=== PATIENT | female | born 1990 | race Caucasian/White ===

== ENCOUNTER 2017-03-20 05:59 | Inpatient (IN) ==
[2017-03-20] MEDS ORDERED: Famotidine 20 MG/2 ML VIAL IVP PRN (06:32)
[2017-03-20] MEDS ORDERED: Metoclopramide 10 MG/2 ML VIAL IVP PRN (06:32)
[2017-03-20] MEDS ORDERED: Ondansetron 4 MG/2 ML VIAL IVP PRN (06:32)
[2017-03-20] MEDS ORDERED: Naloxone 0.4 MG/ML INJ IVP PRN (06:32)
[2017-03-20] MEDS ORDERED: *HR* Nalbuphine 20 MG/ML AMPUL IVP PRN (06:35)
[2017-03-20] MEDS ORDERED: Ringers Solution, Lactated 1,000 ML IVC SCH (06:45)
[2017-03-20 06:56] LABS: Basophils % 0.3 %; Eosinophils # 0.2 K/mcL (0.0-0.6); Eosinophils % 1.4 %; Hematocrit 33.1 % (35.3-44.9); Hemoglobin 11.2 g/dL (11.5-15.4); Immature Granulocytes % 1.5 % (0-4); Lymphocytes # 2.3 K/mcL (0.6-4.6); Lymphocytes % 15.4 %; Mean Corpuscular HGB Conc 33.8 g/dL (31.6-35.5); Mean Corpuscular Hemoglobin 31.2 pg (28.0-33.3); Mean Corpuscular Volume 92.2 fL (83.0-100.0); Mean Platelet Volume 9.7 fL (9.4-12.4); Monocytes # 0.9 K/mcL (0.0-1.3); Monocytes % 5.8 %; Neutrophils # 11.4 K/mcL (1.6-8.9); Platelet Count 261 K/mcL (140-400); Red Blood Count 3.59 M/mcL (3.82-4.97); Red Cell Distribution Width 12.6 % (11.5-14.5); Segmented Neutrophils % 75.6 %
[2017-03-20 07:52] LABS: Amphetamine Screen,Urine Negative ng/mL (Cutoff=1000); Barbiturate Screen,Urine Negative ng/mL (Cutoff=200); Benzodiazepines Screen,Urine Negative ng/mL (Cutoff=200); Cannabinoid Screen,Urine Negative ng/mL (Cutoff = 50); Cocaine Screen,Urine Negative ng/mL (Cutoff= 300); Opiate Screen,Urine Negative ng/mL (Cutoff=300); Phencyclidine Screen,Urine Negative ng/mL (Cutoff=25)
[2017-03-20] MEDS: Oxytocin 20 units/ LR 1000 mL 20 UNIT/1,000 ML BAG IVC SCH (07:59)
[2017-03-20] MEDS: Nicotine 14 MG PATCH.TD24 TD SCH (09:09)
--- NOTE | 2017-03-20 10:18 | OB/GYN History & Physical ---
Date of Encounter: 03/20/17 Time of Encounter: 10:17 History of Present Illness HPI: Ms. Hamilton is a 26 year old female Past Med Surg Social Fam HX - Past Medical History Medical history: no medical history Psychiatric history: ADHD - Social History Smoking Status: Current every day smoker Packs per day: 10 Smokeless Tobacco Status: No Alcohol use: none Drug use: none - Family History Mother Adopted: No Family Member Ethnicity: Non- Living Status: Still Living Hx Family Cardiac Disorders: No Hx Family Respiratory Disorders: No Hx Family Cancer: No Hx Family GI Disorders: No Hx Family Genitourinary Disorders: No Hx Family Endocrine Disorder: No Hx Family Musculoskeletal Disorders: No Hx Family Neuromuscular Disorders: No Hx Family Neurologic Disorders: No Hx Family HEENT Disorders: No Hx Family Autoimmune Disorders: No Hx Family Reproductive Disorders: No Hx Family Psychosocial Disorders: No Hx Family Medical Disorders: Yes (fibromyalgia) Obstetrical History - Pregnancies : 2 Medications and Allergies Vit No.124/Iron/FA [ Vitamin Tablet] 1 each PO DAILY 30 Days tablet 08/26/16 [Rx] 3 Allergy/AdvReac Type Severity Reaction Status Date / Time No Known Allergies Allergy Verified 08/26/16 15:48 Results Result Diagrams: 03/20/17 06:45 Abnormal lab results WBC 15.1 K/mcL (4.3-11.1) H 03/20/17 06:45 RBC 3.59 M/mcL (3.82-4.97) L 03/20/17 06:45 Hgb 11.2 g/dL (11.5-15.4) L 03/20/17 06:45 Hct 33.1 % (35.3-44.9) L 03/20/17 06:45 Neutrophils # 11.4 K/mcL (1.6-8.9) H 03/20/17 06:45 All other labs normal.
--- NOTE | 2017-03-20 10:31 | OB/GYN History & Physical ---
Date of Encounter: 03/20/17 Time of Encounter: 10:29 Assessment and Plan (1) IUGR (intrauterine growth restriction) Current visit: Yes Status: Acute pitocin started, ok for epidural if she desires, anticipate FHT CAT 1 History of Present Illness HPI: Ms. Hamilton is a 26 year old female @ 38+0 weeks with IUGR who presents for IOL, she does not report LOF, VB or ctxs, feels good FM, she is GBS neg Past Med Surg Social Fam HX - Past Medical History Medical history: no medical history Psychiatric history: ADHD - Social History Smoking Status: Current every day smoker Packs per day: 10 Smokeless Tobacco Status: No Alcohol use: none Drug use: none - Family History Mother Adopted: No Family Member Ethnicity: Non- Living Status: Still Living Hx Family Cardiac Disorders: No Hx Family Respiratory Disorders: No Hx Family Cancer: No Hx Family GI Disorders: No Hx Family Genitourinary Disorders: No Hx Family Endocrine Disorder: No Hx Family Musculoskeletal Disorders: No Hx Family Neuromuscular Disorders: No Hx Family Neurologic Disorders: No Hx Family HEENT Disorders: No Hx Family Autoimmune Disorders: No Hx Family Reproductive Disorders: No Hx Family Psychosocial Disorders: No Hx Family Medical Disorders: Yes (fibromyalgia) Obstetrical History - Pregnancies : 2 Para: 1 Livin Medications and Allergies Vit No.124/Iron/FA [ Vitamin Tablet] 1 each PO DAILY 30 Days tablet 08/26/16 [Rx] 3 Allergy/AdvReac Type Severity Reaction Status Date / Time No Known Allergies Allergy Verified 08/26/16 15:48 Exam - Constitutional Constitutional: well developed - HEENT HEENT: PERRL - Neck Neck exam: full ROM - Lungs Respiratory exam: CTAB - Cardiovascular Cardiovascular exam: RRR - Abdomen Abdomen: Present: gravid - Cervix Dilation: 2 Effacement: 80 Results Result Diagrams: 03/20/17 06:45 Abnormal lab results WBC 15.1 K/mcL (4.3-11.1) H 03/20/17 06:45 RBC 3.59 M/mcL (3.82-4.97) L 03/20/17 06:45 Hgb 11.2 g/dL (11.5-15.4) L 03/20/17 06:45 Hct 33.1 % (35.3-44.9) L 03/20/17 06:45 Neutrophils # 11.4 K/mcL (1.6-8.9) H 03/20/17 06:45 All other labs normal.
[2017-03-20] MEDS ORDERED: *HR* FentaNYL (PF) 100 MCG/2 ML VIAL EP ONE (10:58)
[2017-03-20] MEDS ORDERED: Bupivacaine-MPF 0.25% 10 ML VIAL EP ONE (10:58)
--- NOTE | 2017-03-20 10:58 | Anesthesia Evaluation PreOp ---
Date of Encounter: 03/20/17 Time of Encounter: 10:56 - Past History Planned Operation: PASCUAL Cardiac History: Denies any Significant Hx Pulmonary History: Smoker, Pack/yr (15) HEALTH CARE MANAGER History: Denies Any Significant HX Other Medical History: Denies Any Significant HX Anesthesia History: No Prior Anesthetic Complications (denies personal h/o GA or NA complications; denies family h/o GA complications), Past Anesthesia (PASCUAL x 1; GA x 1) : Yes Test: Positive Alcohol Use: none Drug use: none Medications and Allergies Vit No.124/Iron/FA [ Vitamin Tablet] 1 each PO DAILY 30 Days tablet 08/26/16 [Rx] 3 Allergy/AdvReac Type Severity Reaction Status Date / Time No Known Allergies Allergy Verified 08/26/16 15:48 - Meds/Allergy Pre-op Review Medications Reviewed: Yes Allergies Reviewed: Yes Beta Blockers on Current Med List: No Anesthesia Results - Labs 03/20/17 06:45 Anesthesia Exam 125/68, HR 89, RR 16 O2 Sat Height 1.55 m Weight 66.9 kg NPO (# of Hours): solids >5 hours Pain Scale: 4 Pain Scale Used: Numeric (1 - 10) - HEENT Pupil (Motor): Pupils equal Mallampati: I Teeth: Normal Oral Opening: Greater than 3 - HEALTH CARE MANAGER LOC: Oriented HEALTH CARE MANAGER Motor: Normal RUE, Normal LUE, Normal RLE, Normal LLE, Normal Face HEALTH CARE MANAGER Sensory: Normal: RUE, LUE, RLE, LLE, Face - Cardiac Rhythm: Regular Murmur: None - Pulmonary Breath Sounds: bilateral Clear Respiratory Effort: Symmetrical Anesthesia Assess/Plan ASA Score: 2 Modified [place] Scale for Level of Consciousness: Cooperative, oriented, and tranquil Anesthetic Plan: Regional Autologous Blood: No Monitoring Plan: Standard Monitors Recovery Plan: Other
[2017-03-20] MEDS ORDERED: Epidural Premix (fent/bupiv) 110 ML EP SCH (11:00)
[2017-03-20] MEDS ORDERED: *HR* FentaNYL (PF) 100 MCG/2 ML VIAL ONE (11:04)
[2017-03-20] MEDS ORDERED: Bupivacaine-MPF 0.25% 10 ML VIAL ONE (11:05)
[2017-03-20] MEDS ORDERED: Epidural Premix (fent/bupiv) 110 ML EP ONE (11:05)
--- NOTE | 2017-03-20 13:47 | OB Labor Progress Note ---
Date of Encounter: 03/20/17 Time of Encounter: 13:45 Labor Progress Note - Subjective Subjective: patient doing well - Vital Signs Vital Signs: VSS - Cervix Cervix: 3/80 - Heart Tones Heart Tones: FHT CAT 1 - Plan Plan: ok for epidural if she desires, pitocin @ 14, keep increasing, anticipate
--- NOTE | 2017-03-20 17:35 | Anesthesia Procedures ---
Date of Encounter: 03/20/17 Time of Encounter: 17:33 Procedures: Anesthesia - Epidural/Spinal Patient ID/Chart reviewed: Yes Patient examined: Yes OB Eval: Gestational age: 38 weeks OB Eval: : 2 OB Eval: Hx Para: 1 OB Eval: Dilated at (cm): 4 OB Eval: Contractions: Non-stressed pattern Consent Obtained: Yes Supplemental Oxygen: None/Room Air Site Prep: Aseptic Technique, Sterile prep and drape, Povidone-Iodine 1% Local Anesthetic: Lidocaine 1% Amount of Local Anesthetic used: 3 Touhy Needle Gauge: 18 Touhy Needle Depth (cm): 4 Catheter Depth at Skin (cm): 10 Test Dose (1.5% Lido + Epi): Volume given (mls): 5 Test Dose Result: Negative Loading Dose: 0.25% Marcaine (mls): 5 Loading Dose: Fentanyl (mcg): 100 Loading Dose Administered: Thru Catheter Infusion Med: 0.125% Bupivacaine w/ 2 mcg/ml Fentanyl Infusion Rate (mls/hr): 14 (demand bolus of 5mL q30min PRN) Catheter Secured in Place: Tegaderm, Tape Interspace Used: L3-L4 Loss of Resistance (CALVIN): Yes Blood: No CSF: No Paresthesia: No Procedure: successful x 1 attempt Vitals + FHT's: please see Andrew CURTIS's electronic documentation for VS.
--- NOTE | 2017-03-20 18:37 | OB Labor Progress Note ---
Date of Encounter: 03/20/17 Time of Encounter: 18:35 Labor Progress Note - Subjective Subjective: patient comfortable s/p epidural - Vital Signs Vital Signs: VSS - Cervix Cervix: 4cm - Heart Tones Heart Tones: 150/mod wanda/+accels, non rec wanda decels - Plan Plan: patient AROM'ed, clear fluid anticipate
--- NOTE | 2017-03-20 22:43 | OB Labor Progress Note ---
Date of Encounter: 03/21/17 Time of Encounter: 22:04 Labor Progress Note - Subjective Subjective: patient comfortable - Vital Signs Vital Signs: VSS - Cervix Cervix: 5cm - Heart Tones Heart Tones: 145/mod wanda/+accels, non rec wanda decels - Plan Plan: IUPC placed, anticipate
[2017-03-21] MEDS ORDERED: Epidural Premix (fent/bupiv) 110 ML EP ONE (00:29)
--- NOTE | 2017-03-21 03:09 | OB Labor Progress Note ---
Date of Encounter: 03/21/17 Time of Encounter: 03:07 Labor Progress Note - Subjective Subjective: patient comfortable - Vital Signs Vital Signs: VSS - Cervix Cervix: 6cm - Heart Tones Heart Tones: 145/mod wanda/+accels, non rec wanda decels - Plan Plan: pit @ 6 cont to monitor strip, anticipate ,
--- NOTE | 2017-03-21 03:46 | OB/GYN Procedure Note ---
Delivery - Delivery Date: 03/21/17 Provider: Alysa Swift Intrapartum events: none Delivery induction: AROM, oxytocin Delivery monitor: external FHT, internal uterine Anesthesia: epidural Estimated Blood Loss: 100 - Infant (s) Infant A Presentation: vertex Position: TRACY Route of delivery: vacuum extraction Gender: Female Viability: Viable - Repair Episiotomy: none Laceration Description: None - Complications Delivery complications: none - Disposition Mom disposition: stable in LDR disposition: stable in LDR - Comments Comments: 26 y/o now delivered a viable female infant @0332 hrs via VAVD for HR decels, weight 2490g (5lbs 8 oz), delivered TRACY, no nuchal cord , APGARs 8/9, placenta delivered intact @ 0336hrs, no lacerations, EBL 100cc, mother and stable.
[2017-03-21] MEDS ORDERED: Measles/Mumps/Rubella Vacc 0.5 ML VIAL SQ PRN (03:47)
[2017-03-21] MEDS ORDERED: Oxytocin 20 units/ LR 1000 mL 20 UNIT/1,000 ML BAG IVC SCH (04:00)
[2017-03-21] MEDS: Oxytocin 20 units/ LR 1000 mL 20 UNIT/1,000 ML BAG IVC SCH (04:19)
[2017-03-21] MEDS: Ibuprofen 600 MG TABLET PO PRN ×2 (08:41→17:29)
[2017-03-21] MEDS: Prenatal Vit/FA 1 EACH TABLET PO SCH (08:41)
[2017-03-21] MEDS: Nicotine 14 MG PATCH.TD24 TD SCH (08:42)
[2017-03-22] MEDS: Ibuprofen 600 MG TABLET PO PRN (01:13)
[2017-03-22 07:49] VITALS: BP 99/62
--- NOTE | 2017-03-22 08:59 | Discharge Summary ---
Date of Encounter: 03/22/17 Time of Encounter: 09:00 - Discharge Diagnosis (1) Vaginal delivery Priority: Primary Status: Acute Comments: continue routine care discharge home today (2) Breast feeding status of mother Priority: Secondary Status: Acute Comments: support prn - Discharge Medications Prescriptions: Ibuprofen [Motrin] 600 mg PO Q6HR PRN #60 tablet PRN Reason: Cramping Home Medications: Vit No.124/Iron/FA [ Vitamin Tablet] 1 each PO DAILY 30 Days tablet 08/26/16 [Rx] Ibuprofen [Motrin] 600 mg PO Q6HR PRN #60 tablet 03/22/17 [Rx] Vit/FA 1 each PO DAILY tablet 03/22/17 [Rx] Allergies/Adverse Reactions: 3 Allergy/AdvReac Type Severity Reaction Status Date / Time No Known Allergies Allergy Verified 08/26/16 15:48 Data Procedures and tests throughout hospitalization: Laboratory Tests 03/20/17 03/20/17 06:45 06:45 WBC 15.1 H RBC 3.59 L Hgb 11.2 L Hct 33.1 L MCV 92.2 MCH 31.2 MCHC 33.8 RDW 12.6 Plt Count 261 MPV 9.7 Immature Gran % 1.5 Seg Neutrophils % 75.6 Lymphocytes % 15.4 Monocytes % 5.8 Eosinophils % 1.4 Basophils % 0.3 Neutrophils # 11.4 H Lymphocytes # 2.3 Monocytes # 0.9 Eosinophils # 0.2 Basophils # 0.0 Urine Opiates Screen Negative Ur Barbiturates Screen Negative Ur Phencyclidine Scrn Negative Ur Amphetamines Screen Negative U Benzodiazepines Scrn Negative Urine Cocaine Screen Negative U Marijuana (THC) Screen Negative Date of admission: 03/20/17 05:59 Primary care physician: PCP NONE Consults: 03/20/17 06:32 Consult to Production Utility Worker (W&C) [CONS] Stat Reason For Exam: Reason for SW Consult: history of drug use, transportation issues Discharging clinician: Paula Long Anticipated date of discharge: 03/22/17 - Patient Status Disposition: Home, Self-Care Condition: Good Functional capacity at discharge: independent ambulation - Discharge Instructions Follow Up With: NONE,PCP [Primary Care Provider] - Alysa Swift MD [Partnered Physician] - - Diet and Activity Activity: increase activity as tolerated Diet: regular diet Hospital Course Delivery: Episiotomy: none Laceration: none Other procedures: none complications: none Discharge diagnosis: IUP at term delivered [place] baby: female (breast feeding) Time Attestation: Total time spent providing and/or coordinating discharge services: Time Spent: Less than 30 minutes Exam - Constitutional Vitals: Temp Pulse Resp BP Pulse Ox 97.8 F 77 16 99/62 99 03/22/17 07:30 03/22/17 07:30 03/22/17 07:30 03/22/17 07:30 03/22/17 03:47 General appearance IM: A&O X 3, pleasant, answers questions appropriately - Respiratory Respiratory exam: Present: CTAB - Cardiovascular Cardiovascular exam IM: Present: RRR, +S1, +S2 - GI/Abdominal GI/Abdominal exam IM: normal bowel sounds - Uterine Tone: Firm Uterus Position: 2 Fingers Below Umbilicus, Midline - Extremities Exam Extremities exam IM: Present: full ROM, normal capillary refill, normal inspection - Neurological Exam Neurological exam: alert, oriented X3, reflexes normal
[2017-03-22] MEDS: Prenatal Vit/FA 1 EACH TABLET PO SCH (10:25)
== END 2017-03-22 10:37 | disposition home or self-care (01) | DRG 560 ==
LOC: 1NENULAB 05:59 → 1NENUOBS 03-21 05:30
PROVIDERS: ADMIT Student in an Organized Health Care Education/Training Program; ATTEND Student in an Organized Health Care Education/Training Program